=== PATIENT | female | born 1955 | race American Indian/Alaskan Native ===

== ENCOUNTER 2024-03-04 10:54 | Emergency (ER) | payer MEDICARE ==
[2024-03-04 11:02] VITALS: TEMP 97.6
[2024-03-04] MEDS: KETOROLAC 15 MG/ML 1 ML VIAL IM STA (12:07)
[2024-03-04] MEDS: HYDROmorphone 1 MG/ML 1 ML SYRINGE IM STA ×2 (12:07→13:13)
--- NOTE | 2024-03-04 12:08 | ED ---
Fall HPI - General Chief Complaint: Fall Stated Complaint: Fall Time Seen by Provider: 03/04/24 11:25 Source: patient, RN notes reviewed Mode of arrival: EMS Limitations: no limitations - History of Present Illness Initial Comments: This is a 69-year-old female who presents to the emergency department for left knee pain. Patient states that she tripped on a rug at the hotel she was staying at and injured her left knee. She has had difficulty putting weight on the leg since. Denies hitting her head or sustaining any other injuries. Not taking any blood thinners. MD Complaint: fall - Related Data Previous Rx's Medication Instructions Recorded Ketorolac [Toradol] 10 mg PO Q6HR PRN #15 tab 03/04/24 methocarbamoL [Robaxin-750] 1,500 mg PO TID PRN #30 tab 03/04/24 Allergies Allergy/AdvReac Type Severity Reaction Status Date / Time No Known Allergies Allergy Verified 03/04/24 14:08 Review of Systems ROS Statement: Those systems with pertinent positive or pertinent negative responses have been documented in the HPI. ROS Other: All systems not noted in ROS Statement are negative. Past Medical History Past Medical History: Diabetes Mellitus, Hyperlipidemia, Hypertension, Thyroid Disorder Additional Past Medical History / Comment(s): Hypothyroid History of Any Multi-Drug Resistant Organisms: None Reported Past Surgical History: No Surgical Hx Reported Past Psychological History: Anxiety Smoking Status: Former smoker Past Alcohol Use History: Rare Past Drug Use History: None Reported General Exam Limitations: no limitations General appearance: alert, in no apparent distress Head exam: Present: atraumatic, normocephalic, normal inspection Respiratory exam: Present: normal lung sounds bilaterally. Absent: respiratory distress, wheezes, rales, rhonchi, stridor Cardiovascular Exam: Present: regular rate, normal rhythm, normal heart sounds. Absent: systolic murmur, diastolic murmur, rubs, gallop, clicks Extremities exam: Present: other (Tenderness to palpation over the left knee. Range of motion limited by pain. 2+ DP and PT pulses) Neurological exam: Present: alert, oriented X3, CN II-XII intact Psychiatric exam: Present: normal affect, normal mood Skin exam: Present: warm, dry, intact, normal color. Absent: rash Course Vital Signs 03/04/24 03/04/24 10:58 14:31 Temperature 97.6 F Pulse Rate 65 72 Respiratory 18 20 Rate Blood Pressure 164/69 142/71 O2 Sat by Pulse 98 98 Oximetry Medical Decision Making - Medical Decision Making This is a 69 year old female who presents to the emergency department for a left knee injury. Was pt. sent in by a medical professional or institution? @ -No Did you speak to anyone other than the patient for history? @ -No Did you review nursing and triage notes? @ -Yes, and I agree, it is accurate with regards to the patient's symptoms. Were old charts reviewed? @ -No Differential Diagnosis? @ -Differential Musculoskeletal Muscular strain, contusion, ligament sprain, fracture, arthritis, septic arthritis, bursitis, cellulitis, muscle spasm, nerve compression, DVT, arterial occlusion, herpes zoster, electrolyte abnormality, tumor.... This is not meant to be in all inclusive list EKG interpreted by me (3pts min.)? @ -Not obtained X-rays interpreted by me (1pt min.)? @ -X-ray of the left knee obtained. My interpretation identifies no acute fractures. CT interpreted by me (1pt min.)? @ -CT scan of the left knee obtained. My interpretation identifies no acute fractures. U/S interpreted by me (1pt. min.)? @ -Not obtained What testing was considered but not performed? (CT, X-rays, U/S, labs)? Why? @ -None What meds were considered but not given? Why? @ -None Did you discuss the management of the patient with other professionals? @ -No Did you reconcile home meds? @ -No Was smoking cessation discussed for >3mins.? @ -No Was critical care preformed (if so, how long)? @ -No Were there social determinants of health that impacted care today? How? (Homelessness, low income, unemployed, alcoholism, drug addiction, transportation, low edu. Level, literacy, decrease access to med. care, prison, rehab)? @ -No Was there de-escalation of care discussed even if they declined? (Discuss DNR or withdrawal of care, Hospice)? @ -No What co-morbidities impacted this encounter? (DM, HTN, Smoking, COPD, CAD, Cancer, CVA, Hep., AIDS, mental health diagnosis, sleep apnea, morbid obesity)? @ -None Was patient admitted / discharged? @ -Discharged. X-ray of the left knee reveals no acute fractures. However, the x-ray did not provide full view of the patella and the patient continued to have severe pain. CT scan of the left knee was subsequently obtained. No acute fractures were identified on the CT scan. Pain managed in the emergency department. Patient was put in a knee immobilizer and given crutches. Prescription for Toradol and Robaxin provided. Otherwise advised follow-up with her primary care provider or orthopedist when she returns home. Patient discharged home in stable condition. Case discussed with ED attending Dr. Strong. Return precautions reviewed in depth, the patient is instructed to return to the emergency department with any new, worsening, or concerning symptoms. Patient verbalized understanding. Undiagnosed new problem with uncertain prognosis? @ -None Drug Therapy requiring intensive monitoring for toxicity (Heparin, Nitro, Insulin, Cardizem)? @ -None Were any procedures done? @ -None Diagnosis/symptom? @ -Fall, left knee contusion Acute, or Chronic, or Acute on Chronic? @ -Acute Uncomplicated (without systemic symptoms) or Complicated (systemic symptoms)? @ -Uncomplicated Side effects of treatment? @ -None Exacerbation, Progression, or Severe Exacerbation] @ -Not applicable Poses a threat to life or bodily function? @ -No - Radiology Data Radiology results: report reviewed, image reviewed Disposition Clinical Impression: Fall, Left knee injury Disposition: HOME SELF-CARE Instructions (If sedation given, give patient instructions): Knee Sprain (ED), Knee Pain (ED) Additional Instructions: Return to the emergency department with any new, worsening, or concerning symptoms. Take the Toradol with Tylenol as needed for pain relief. If you choose to take the Toradol, do not take any other anti-inflammatories such as ibuprofen, take one or the other. Take the Robaxin as 1 to 2 tablets up to 3-4 times daily. Apply ice and elevate the leg when possible. Follow up with your primary care provider in 1-2 days. Prescriptions: methocarbamoL [Robaxin-750] 1,500 mg PO TID PRN #30 tab PRN Reason: Pain Ketorolac [Toradol] 10 mg PO Q6HR PRN #15 tab PRN Reason: Pain Is patient prescribed a controlled substance at d/c from ED?: No Referrals: Nonstaff,Physician [Primary Care Provider] - 1-2 days Time of Disposition: 13:49
--- NOTE | 2024-03-04 12:51 | XR ---
EXAMINATION TYPE: XR knee complete LT DATE OF EXAM: 03/04/2024 12:43 PM INDICATION: Patient age:Female; 69 years old; Reason for study: Fall; [facility]. COMPARISON: None. TECHNIQUE: The Left knee(s) was examined in Frontal, lateral and oblique projections. FINDINGS: Joint space narrowing involving the patellofemoral joint and medial tibiofemoral joint sp lizet. There is associated marginal osteophytosis. IMPRESSION: 1. No acute osseous pathology. Consider further evaluation with CT if there is continued clinical con cern. 2. Moderate osteoarthritic changes. [facility], , 03/04/2024 12:49 PM
--- NOTE | 2024-03-04 13:32 | CT ---
EXAMINATION TYPE: CT knee LT wo con CT DLP: 159.9 mGycm, Automated exposure control for dose reduction was used. DATE OF EXAM: 03/04/2024 1:25 PM COMPARISON: Left knee radiograph the same date CLINICAL INDICATION:Female, 69 years old with history of Injury, negative x-ray; [facility], LEFT KNE PAIN TECHNIQUE: Axial images were obtained of the left knee without the use of IV contrast. Additional co adelaida and sagittal reformatted images and soft tissue and bone window were obtained for review. FINDINGS: There is no evidence of fracture, subluxation, or dislocation. Tricompartmental joint spac e narrowing with marginal osteophytosis demonstrated. Subtle increase subchondral sclerosis of the me dial tibial plateau. No significant soft tissue swelling. Small suprapatellar joint effusion. No foca l muscular atrophy or edema is identified. No radiopaque foreign body identified. Prominent venous va sculature within the superficial soft tissues. IMPRESSION: 1. No acute fracture or dislocation. 2. Small suprapatellar joint effusion. 3. Moderate tricompartmental osteoarthritic changes. [facility], , 03/04/2024 1:29 PM
[2024-03-04] MEDS: IBUPROFEN 600 MG STARTER PACK 4 TAB BTL PO STA (14:08)
[2024-03-04] MEDS: ACET/COD 300 MG/30 MG STARTER PACK 6 TAB BTL PO STA (14:08)
[2024-03-04 14:34] VITALS: BP 142/71; PULSE 72; RESP 20
== END 2024-03-04 14:34 | disposition home or self-care (01) ==
LOC: EC 10:54
DX: S80.02XA Contusion of left knee, initial encounter (principal); Z87.891 Personal history of nicotine dependence; W01.0XXA Fall on same level from slipping, tripping and stumbling without subsequent striking against object, initial encounter; Y92.59 Other trade areas as the place of occurrence of the external cause
CPT/HCPCS: 73562; 73700; 99284; 96372 ×3; L1830 ×2; J1171; J1885